=== PATIENT | male | born 1940 | race Caucasian/White ===

== ENCOUNTER 2017-01-18 10:32 | Outpatient (CLI) | payer MEDICARE, OTHER | END 2017-01-18 10:33 | disposition home or self-care (01) | LOC: SC 10:32 | PROVIDERS: ATTEND Specialist | DX: G47.33 Obstructive sleep apnea (adult) (pediatric) (principal); G47.00 Insomnia, unspecified; R53.83 Other fatigue; G47.8 Other sleep disorders | CPT/HCPCS: 99205; G0463; 99212 ==

== ENCOUNTER 2017-02-06 19:28 | Outpatient (CLI) | payer MEDICARE, OTHER | END 2017-02-06 19:29 | disposition home or self-care (01) | LOC: SC 19:28 | PROVIDERS: ATTEND Specialist | DX: G47.33 Obstructive sleep apnea (adult) (pediatric) (principal) | CPT/HCPCS: 95811 ==

== ENCOUNTER 2017-02-22 15:21 | Outpatient (CLI) | payer MEDICARE, OTHER | END 2017-02-22 15:22 | disposition home or self-care (01) | LOC: SC 15:21 | PROVIDERS: ATTEND Internal Medicine Pulmonary Disease | DX: G47.33 Obstructive sleep apnea (adult) (pediatric) (principal) | CPT/HCPCS: 99213; G0463; 99212 ==

== ENCOUNTER 2017-04-12 08:52 | Outpatient (CLI) | payer MEDICARE, OTHER | END 2017-04-12 08:53 | disposition home or self-care (01) | LOC: SC 08:52 | PROVIDERS: ATTEND Internal Medicine Pulmonary Disease | DX: G47.33 Obstructive sleep apnea (adult) (pediatric) (principal) | CPT/HCPCS: 99213; G0463; 99212 ==

== ENCOUNTER 2017-05-09 09:01 | Outpatient (CLI) | payer MEDICARE, OTHER | END 2017-05-09 09:02 | disposition home or self-care (01) | LOC: SC 09:01 | PROVIDERS: ATTEND Internal Medicine Pulmonary Disease | DX: G47.33 Obstructive sleep apnea (adult) (pediatric) (principal) | CPT/HCPCS: 99213; G0463; 99212 ==

== ENCOUNTER 2019-04-16 14:05 | Outpatient (CLI) | payer MEDICARE, OTHER ==
--- NOTE | 2019-04-16 16:37 | SLEEP CARE CONSULTATION ---
Information from patient questionnaire entered by Sari Lorenzana. I have reviewed and concur with the information entered by Sari Lorenzana. This document represents the service I personally performed and the decisions made by me, Lon Martinez MD, [facility]. History of Present Illness Previous diagnosis: Severe, Obstructive Sleep Apnea-Hypopnea Syndrome Reason for CPAP/BiPAP follow up: annual (last seen in 2017) Equipment obtained from: [facility] Mask style: Nasal Mask brand: Respironics HPI additional information: HPI: Mr. Juan returned today for annual follow up of nasal CPAP therapy. He was diagnosed to have very severe obstructive sleep apnea-hypopnea syndrome. The patient wears a Respironics DreamWear nasal cushion mask. He reports using the device nightly and all through the night. The compliance report shows usage in 169 nights out of the past 180 nights, averaging 10.7 hours a night (he wears it while reading). He complained of no particular problem with the device such as soreness on the face, dry nose, epistaxis, nasal congestion or headache. He thinks that the pressure of 8 12 cmH2O is comfortable. On the CPAP therapy he notices improvement in his sleep quality, and that he wakes up feeling fresher in the morning and more awake/alert during the day. The average residual AHI is 3.6; and average time in large leak per day is 2 minutes. The 90th percentile pressure is 9.9 cmH2O. CPAP Compliance Data - Data Reviewed with Patient Average duration of nightly device use: 10.75 Compliance rate %: 92.8 (180 days) Current pressure setting (cmH2O): 8-12 Humidity settin Heated hose settin Average residual AHI: 3.6 Average large leak: 2 mins 9 secs Subjective Initial [place] Sleepiness Scale score: 5 Current [place] Sleepiness Scale score: 6 Allergies and Home Medications Drug allergies reviewed: Yes Home medication list reviewed: Yes Review of Systems Review of systems same as previous: Yes Impression and Plan IMPRESSION: 1. Obstructive Sleep Apnea-Hypopnea Syndrome, very severe, with the patient continuing to do very well on nasal CPAP therapy. He has excellent compliance and significant clinical improvement. The current pressure appears effective and comfortable. Overall, he is very satisfied with treatment and plans to continue with it long-term. No adjustment is necessary today. PLAN: 1. Continue with autoCPAP set 8 - 12 cmH2O. 2. Try to lose weight 3. Try the new ResMed N30i mask. 4. Return in one year for follow up or earlier if there is any problem with the treatment. I spent 100% of this 15 minute visit face to face with the patient with greater than 50% of this was spent time counseling the patient and coordination of care.
== END 2019-04-16 14:06 | disposition home or self-care (01) ==
LOC: SC 14:05
PROVIDERS: ATTEND Internal Medicine Pulmonary Disease
DX: G47.33 Obstructive sleep apnea (adult) (pediatric) (principal)
CPT/HCPCS: 99213; G0463; 99212

== ENCOUNTER 2021-07-20 10:00 | Emergency (ER) | payer MEDICARE, OTHER ==
--- NOTE | 2021-07-20 11:23 | ED Physician Documentation ---
PD HPI Fall - Stated complaint Stated Complaint: FALL/BACK PX - Chief complaint Chief Complaint: Back Pain - History obtained from History obtained from: Patient - History of Present Illness Mechanism of injury: Slipped Fall distance: Standing position (fell into chair and struck right lower ribs in back. Persistent pain with movement and deep breathing. He hoped improvement in few days but is still hurting significantly.) Where injury occurred: Home Timing - onset: How many days ago (4) Injury(ies) location: Back. No: Head, Neck Associated symptoms: No: LOC, AMS, Weakness, Paresthesias Contributing factors: No: Anticoagulated Similar symptoms before: Has not had sx before Review of Systems Constitutional: denies: Fever, Chills Nose: denies: Rhinorrhea / runny nose, Congestion Throat: denies: Sore throat Respiratory: denies: Cough GI: denies: Abdominal Pain, Nausea, Vomiting : denies: Hematuria Neurologic: denies: Focal weakness, Numbness PD PAST MEDICAL HISTORY - Past Medical History Past Medical History: Yes Cardiovascular: None Respiratory: Sleep apnea, CPAP use Endocrine/Autoimmune: Type 2 diabetes GI: None : None HEENT: None Psych: None Musculoskeletal: Osteoarthritis, Chronic back pain Derm: Psoriasis - Past Surgical History Past Surgical History: Yes General: Cholecystectomy Ortho: Knee replacement HEENT: Cataracts - Present Medications Home Medications: Ambulatory Orders Medication Instructions Recorded Confirmed Aspirin [Aspir 81] 81 mg PO DAILY 07/09/14 06/06/15 Calcium Carbonate [Calcium] 500 mg PO BID 07/09/14 06/06/15 Gabapentin 600 mg PO TID 07/09/14 06/06/15 Loratadine [Claritin] 10 mg PO DAILY 07/09/14 06/06/15 Metformin HCl [Metformin HCl ER] 2,000 mg PO DAILY 07/09/14 06/06/15 Multivitamin [Multi Vitamin Daily] 1 tab PO DAILY 07/09/14 06/06/15 [place]-3 Fatty Acids [Fish Oil] 1,000 mg PO DAILY 07/09/14 06/06/15 PARoxetine [Paxil] 20 mg PO DAILY 07/09/14 06/06/15 Simvastatin 20 mg PO DAILY 07/09/14 06/06/15 Insulin Glargine [Lantus] 60 DAILY 07/10/14 06/06/15 Testosterone [Fortesta] 240 DAILY 07/10/14 06/06/15 Losartan/Hydrochlorothiazide 06/06/15 06/06/15 [Hyzaar 100-12.5 Tablet] Metoprolol Tartrate 06/06/15 06/06/15 Acetaminophen [Tylenol] 650 mg PO TID 10 Days #60 tablet 07/20/21 oxyCODONE [Roxicodone] 5 mg PO Q8H PRN #20 tablet 07/20/21 - Allergies Allergies/Adverse Reactions: Allergies Allergy/AdvReac Type Severity Reaction Status Date / Time No Known Drug Allergies Allergy Verified 07/20/21 10:13 - Social History Does the pt smoke?: No Smoking Status: Never smoker Does the pt drink ETOH?: No Does the pt have substance abuse?: No - POLST Patient has POLST: No PD ED PE NORMAL - Vitals Vital signs reviewed: Yes - General General: Alert and oriented X 3, Well developed/nourished, Other (appears uncomfortable with movement.) - HEENT HEENT: Atraumatic - Neck Neck: Supple, no meningeal sign, No bony TTP - Abdomen Abdomen: Soft, Non tender - Back Back: No spinal TTP, Other (tender right CVA area at posterior axillary line over ribs approx 9-10. Bruising and tender of the skin as well. No vertebral tender. ) - Derm Derm: Normal color, Warm and dry - Extremities Extremities: No tenderness to palpate, Normal ROM s pain, No edema, No calf tenderness / cord - Neuro Neuro: Alert and oriented X 3, No motor deficit, Normal speech Results - Vitals Vitals: Vital Signs - 24 hr 07/20/21 07/20/21 10:04 14:35 Temperature 35.8 C L 36.5 C Heart Rate 81 80 Respiratory 16 16 Rate Blood Pressure 165/97 H 140/90 H O2 Saturation 96 96 Oxygen O2 Source Room air - Rads (name of study) chest CT Radiology: Prelim report reviewed (lung okay. Kidney appears normal. Fracture ribs 9 and 10. ), See rad report PD MEDICAL DECISION MAKING - ED course Complexity details: reviewed results (rib fractures 9 and 10, without lung/kidney injury. ), considered differential, d/w patient Departure - Departure Disposition: 01 Home, Self Care Clinical Impression: Rib fractures Qualifiers: Encounter type: initial encounter Fracture type: closed Laterality: right Qualified Code(s): S22.41XA - Multiple fractures of ribs, right side, initial encounter for closed fracture Condition: Stable Record reviewed to determine appropriate education?: Yes Instructions: ED Fx Rib Prescriptions: oxyCODONE [Roxicodone] 5 mg PO Q8H PRN #20 tablet PRN Reason: Pain Acetaminophen [Tylenol] 650 mg PO TID 10 Days #60 tablet Comments: Your CT scan shows 2 rib fractures in the area where you are injured. It is the ninth and 10th ribs. No signs of injury to the lung kidney or other organs. This will have the most significant pain for the first week and a half or so and then taper down. He will be about a 4-week process for healing. Initially I would suggest using some Tylenol 650 mg 3 times a day regularly. To that add ibuprofen or naproxen if needed. Alternatively can use oxycodone every 6 hours or so if needed for worse pain. I would anticipate the narcotic pain medicine the needed just the first week or so. [facility] I am prescribing a short course of narcotic pain medication for you. These are potentially dangerous and addictive medications that should be used carefully. These medications may constipate you. Take an [id number] stool softener such as docusate twice daily with plenty of water while taking these medica tions. If you go 24 hours without a bowel movement, take [id number] MiraLAX, per package instructions. Do not drink or drive while taking these medications. If you received narcotic or sedating medications while in the emergency department do not drive for 24 hours. Store this medication in a safe, secure place and out of reach of children. It is a violation of federal law to give or sell this medication to another person or to use in a manner other than prescribed. The ED will not refill narcotic prescriptions, including prescriptions lost or stolen. You can dispose of unwanted medications at the [facility]'s office or at several pharmacies such as [facility] Discharge Date/Time: 07/20/21 14:35
[2021-07-20] MEDS ORDERED: ACETAMINOPHEN 325 MG TABLET PO STA (11:35)
[2021-07-20] MEDS ORDERED: KETOROLAC 30 MG/ML VIAL IM STA (11:35)
--- NOTE | 2021-07-20 14:10 | CT Report ---
PROCEDURE: CHEST WO INDICATIONS: fall, right posterior lower ribs/chest pain TECHNIQUE: Noncontrast 1mm axial images were acquired from the pulmonary apices to the posterior costophrenic an gles. Axial 5 mm soft tissue kernel reconstructions were performed as well as 8 mm axial MIP and cor onal and sagittal 5 mm reformations. For radiation dose reduction, the following was used: automate d exposure control, adjustment of mA and/or kV according to patient size. COMPARISON: CT abdomen pelvis 06/06/2015. FINDINGS: Image quality: There is a calcific artifact from patient's bilateral shoulder prostheses. Lungs and pleura: No pleural effusions or pneumothorax. There are posterior dependent opacities with in the lungs consistent with dependent atelectasis. No definite pulmonary contusions or lacerations. There are bilateral scattered indistinct peribronchial groundglass opacities with a perihilar predomi nance. The trachea and central airways are patent. No bronchiectasis. There is a calcified nodule wit hin the right middle lobe consistent with sequelae of old granulomatous disease. Mediastinum: Heart size is enlarged. No pericardial effusion. There is severe coronary arterial vas cular calcification. No mediastinal adenopathy by size criteria. Thoracic aorta and central pulmonar y arteries are normal in size. Esophagus is normal in caliber. There is a moderate-sized hiatal bony ia. Bones and chest wall: There are mildly displaced fractures of the right posterior 9th and 10th ribs. No vertebral body compression fractures. No axillary or supraclavicular adenopathy by size criteria . Visualized thyroid demonstrates mild heterogeneity with evaluation limited by streak artifact from patient's shoulder prosthesis. Abdomen: Visualized upper abdominal solid organs and bowel loops appear normal in the absence of con trast. IMPRESSION: 1. Mildly displaced fractures of the right posterior 9th and 10th ribs. 2. No evidence of pneumothorax or pleural effusions. No definite pulmonary contusions or lacerations. 3. Bilateral scattered indistinct peribronchial groundglass opacities with a perihilar predominance. The findings are nonspecific but likely represent an infectious or inflammatory process such as atypi ruperto pneumonia or hypersensitivity pneumonitis. The appearance is atypical for a traumatic abnormality . Recommend a short-term follow-up study in 3-6 months to demonstrate resolution if clinically indica elian. 4. Moderate-sized hiatal hernia. Reviewed by: Gen Avelar MD on 07/20/2021 2:08 PM PST Approved by: Gen Avelar MD on 07/20/2021 2:08 PM PST Station ID: [id number]
[2021-07-20 14:37] VITALS: BP 140/90
== END 2021-07-20 14:35 | disposition home or self-care (01) ==
LOC: ED 10:00
DX: S22.41XA Multiple fractures of ribs, right side, initial encounter for closed fracture (principal); W01.190A Fall on same level from slipping, tripping and stumbling with subsequent striking against furniture, initial encounter; Y92.009 Unspecified place in unspecified non-institutional (private) residence as the place of occurrence of the external cause; E11.9 Type 2 diabetes mellitus without complications; Z79.4 Long term (current) use of insulin; Z79.84 Long term (current) use of oral hypoglycemic drugs; Z79.82 Long term (current) use of aspirin
CPT/HCPCS: 71250; 96372; 99283; 99284; A9270